=== PATIENT | male | born 1985 | race Caucasian/White ===

== ENCOUNTER 2018-12-27 11:22 | Emergency (ER) | payer MEDICARE, MEDICAID ==
[~2018-12-27] VITALS: Ht 157.5 cm; Wt 77.1 kg
[2018-12-27 11:48] VITALS: BP 131/78
--- NOTE | 2018-12-27 12:00 | PHYS DOC ---
Past Medical History Past Medical History: Depression, GERD, Seizure, Schizophrenia, UTI Additional Past Medical Histor: NEUROPATHY, OCD, SLEEP APNEA, CP Past Surgical History: Other Additional Past Surgical Histo: "UROGENITAL IMPLANT" Alcohol Use: None Drug Use: None Adult General Chief Complaint Chief Complaint: DEPRESSION HPI HPI 33-year-old male with chronic back pain and chronic indwelling Ruiz who was recently had a urinary tract infection. Still has a PICC line in his left arm presents with jin-of-syyfdel pain. Patient states that the Dilaudid is not helping him that he gets at the [facility]. Apparently, he told administration at [facility] that he wanted to harm himself. He adamantly denies any suicidal ideation here.[] Review of Systems Review of Systems Constitutional: Denies fever or chills [] Eyes: Denies change in visual acuity, redness, or eye pain [] HENT: Denies nasal congestion or sore throat [] Respiratory: Denies cough or shortness of breath [] Cardiovascular: No additional information not addressed in HPI [] GI: Denies abdominal pain, nausea, vomiting, bloody stools or diarrhea [] : Chronic indwelling Ruiz[] Musculoskeletal: Chronic back pain[] Integument: Denies rash or skin lesions [] Neurologic: Denies headache, focal weakness or sensory changes [] Endocrine: Denies polyuria or polydipsia [] All other systems were reviewed and found to be within normal limits, except as documented in this note. Allergies Allergies Allergies Coded Allergies Type Severity Reaction Last Updated Verified NSAIDS (Non-Steroidal Anti-Inflamma Allergy Unknown 12/27/18 Yes amitriptyline Allergy Unknown 12/27/18 Yes amoxicillin Allergy Unknown 12/27/18 Yes clavulanic acid Allergy Unknown 12/27/18 Yes cyclobenzaprine Allergy Unknown 12/27/18 Yes diclofenac Allergy Unknown 12/27/18 Yes gabapentin Allergy Unknown 12/27/18 Yes haloperidol Allergy Unknown 12/27/18 Yes latex Allergy Unknown 12/27/18 Yes meclizine Allergy Unknown 12/27/18 Yes methylprednisolone Allergy Unknown 12/27/18 Yes nitrofurantoin Allergy Unknown 12/27/18 Yes prednisolone Allergy Unknown 12/27/18 Yes pseudoephedrine Allergy Unknown 12/27/18 Yes quetiapine Allergy Unknown 12/27/18 Yes tizanidine Allergy Unknown 12/27/18 Yes Physical Exam Physical Exam Constitutional: Patient is somnolent sitting up in bed appears very sleepy[] HENT: Normocephalic, atraumatic, bilateral external ears normal, oropharynx moist, no oral exudates, nose normal. [] Eyes: PERRLA, EOMI, conjunctiva normal, no discharge. [] Neck: Normal range of motion, no tenderness, supple, no stridor. [] Cardiovascular:Heart rate regular rhythm, no murmur [] Lungs & Thorax: Bilateral breath sounds clear to auscultation [] Abdomen: Bowel sounds normal, soft, no tenderness, no masses, no pulsatile mas ses. [] Skin: PICC line left arm[] Back: No tenderness, no CVA tenderness. [] Extremities: No tenderness, no cyanosis, no clubbing, ROM intact, no edema. [] Neurologic: Alert and oriented X 3, normal motor function, normal sensory function, no focal deficits noted. [] Psychologic: Depressed affect but not suicidal or homicidal. [] Current Patient Data Vital Signs Vital Signs Date Time Temp Pulse Resp B/P (MAP) Pulse Ox O2 Delivery O2 Flow Rate FiO2 12/27/18 11:48 98.4 78 18 131/78 (95) 98 Room Air 98.4 EKG EKG [] Radiology/Procedures Radiology/Procedures [] Course & Med Decision Making Course & Med Decision Making Pertinent Labs and Imaging studies reviewed. (See chart for details) [ED course: Dr. Armstrong called and let me know that administration had reported his suicidal comments. We will have our psychiatric assessment team evaluate the patient here in the emergency department. Patient does not appear to be in any pain as he is sitting up very somnolent in the bed he is not tachycardic and his blood pressure is normal. He also has nonpressured speech and dry skin I suspect he is exhibiting narcotic seeking behavior] Dragon Disclaimer Dragon Disclaimer This electronic medical record was generated, in whole or in part, using a voice recognition dictation system. Departure Departure Impression: Primary Impression: Depression Additional Impressions: Chronic pain disorder Opioid dependence Disposition: 01 HOME, SELF-CARE Condition: IMPROVED Referrals: LORETTA CLEMONS MD (PCP) Patient Instructions: Chronic Back Pain, Chronic Pain Management, Depression, Adult, Opiate Dependence Additional Instructions: Please return to the emergency department with any new or concerning symptoms Problem Qualifiers Primary Impression: Depression Depression Type: unspecified Qualified Codes: F32.9 - Major depressive disorder, single episode, unspecified Additional Impressions: Opioid dependence Substance use status: with opioid-induced mood disorder Qualified Codes: F11.24 - Opioid dependence with opioid-induced mood disorder FRIDA PIERRE DO Dec 27, 2018 12:00
== END 2018-12-27 14:19 | disposition home or self-care (01) ==
LOC: ER 11:22
DX: F32.9 Major depressive disorder, single episode, unspecified (principal); F11.24 Opioid dependence with opioid-induced mood disorder; G89.29 Other chronic pain; F20.9 Schizophrenia, unspecified; K21.9 Gastro-esophageal reflux disease without esophagitis; Z91.040 Latex allergy status; Z88.1 Allergy status to other antibiotic agents; Z88.5 Allergy status to narcotic agent; Z88.8 Allergy status to other drugs, medicaments and biological substances
CPT/HCPCS: 99284